=== PATIENT | female | born 1940 | race Caucasian/White ===

== ENCOUNTER 2018-11-17 16:11 | Emergency (ER) | payer OTHER ==
[~2018-11-17] VITALS: Ht 149.9 cm; Wt 71.7 kg
[~2018-11-17 16:11] MED LIST: AMOXICILLIN250 MG PO; RELAFEN500 MG PO; ROBITUSSIN COUG PO; TOPROL XL50 MG PO
[2018-11-17] MEDS ORDERED: FORTAMET500 MG (17:06)
[2018-11-17] MEDS ORDERED: COZAAR50 MG (17:06)
[2018-11-17] MEDS ORDERED: ZOCOR20 MG (17:07)
[2018-11-17] MEDS ORDERED: NEURONTIN300 MG (17:07)
[2018-11-17] MEDS ORDERED: SYNTHROID50 MCG (17:08)
[2018-11-17] MEDS ORDERED: ASPIR 8181 MG (17:08)
[2018-11-17] MEDS ORDERED: RESTASIS1 EACH (17:09)
[2018-11-17] MEDS ORDERED: LUMIGAN2.5 M1 (17:09)
[2018-11-17] MEDS ORDERED: DORZOLAMIDE 2%10 ML (17:09)
[2018-11-17] MEDS ORDERED: REFRESH TEARS15 ML (17:09)
== END 2018-11-17 21:09 | disposition home or self-care (01) ==
LOC: ER 16:11
DX: M54.5 Low back pain (principal); M25.551 Pain in right hip

== ENCOUNTER 2021-06-22 08:25 | Emergency (ER) | payer OTHER ==
[~2021-06-22] VITALS: Ht 144.8 cm; Wt 71.7 kg
[~2021-06-22 08:25] MED LIST changes: +ASPIR 8181 MG; +COZAAR50 MG; +DORZOLAMIDE 2%10 ML; +FORTAMET500 MG; +LUMIGAN2.5 M1; +NEURONTIN300 MG; +REFRESH TEARS15 ML; +RESTASIS1 EACH; +SYNTHROID50 MCG; +ZOCOR20 MG
[2021-06-22] MEDS ORDERED: PROTONIX40 MG PO (14:13)
[2021-06-22] MEDS ORDERED: DICY20TA PO (14:13)
== END 2021-06-22 14:37 | disposition home or self-care (01) ==
LOC: ER 08:25
DX: R10.13 Epigastric pain (principal); E11.9 Type 2 diabetes mellitus without complications

== ENCOUNTER 2022-07-30 13:22 | Emergency (ER) | payer OTHER ==
[~2022-07-30] VITALS: Ht 149.9 cm; Wt 71.7 kg
[~2022-07-30 13:22] MED LIST changes: +DICY20TA PO; +PROTONIX40 MG PO
== END 2022-07-30 19:39 | disposition home or self-care (01) ==
LOC: ER 13:22
DX: M79.642 Pain in left hand (principal); M25.562 Pain in left knee; M25.561 Pain in right knee; M79.641 Pain in right hand

== ENCOUNTER 2023-05-25 19:34 | Emergency (ER) | payer OTHER ==
[~2023-05-25] VITALS: Ht 147.3 cm; Wt 74.4 kg
[2023-05-25 21:32] LABS: HEMATOCRIT 36.3 % (36.0-45.00); HEMOGLOBIN 11.7 g/dL (12.0-15.00); MEAN CELL VOLUME 84.5 fL (80.00-100.00); MEAN CORPUSCULAR HEMOGLOBIN 27.3 pg (27.00-32.0); MEAN CORPUSCULAR HGB CONC 32.3 g/dl (32.0-36.0); PLATELET COUNT 294 K/uL (150-450); RED CELL DISTRIBUTION WIDTH 15.6 % (11.5-14.5)
== END 2023-05-25 22:26 | disposition home or self-care (01) ==
LOC: ER
PROVIDERS: General Practice
DX: L02.212 Cutaneous abscess of back [any part, except buttock and flank] (principal); I10 Essential (primary) hypertension; E11.9 Type 2 diabetes mellitus without complications; Z79.84 Long term (current) use of oral hypoglycemic drugs

== ENCOUNTER 2024-07-19 19:58 | Emergency (ER) | payer OTHER ==
[~2024-07-19] VITALS: Ht 152.4 cm; Wt 71.7 kg
[~2024-07-19 19:58] MED LIST changes: +CHILDREN'S ASPI81 MG; +COZAAR25 MG; +GABAPENTIN300 M2; +LEVOTHYROXINE25 MCG; +METFORMIN HCL500 M2; +SIMVASTATIN80 MG
[2024-07-19] MEDS ORDERED: IBU600 MG PO (22:09)
[2024-07-19] MEDS ORDERED: PEPCID AC20 MG PO (22:09)
[2024-07-19] MEDS ORDERED: DEXAMETHASONE SODIUM PHOSPHATE 4 MG/ML VIAL IM ONE (22:30)
[2024-07-19] MEDS ORDERED: KETOROLAC TROMETHAMINE 60 MG VIAL IM ONE ×2 (22:30→22:53)
[2024-07-19] MEDS ORDERED: DEXAMETHASONE SODIUM PHOSPHATE 4 MG/ML VIAL ONE (22:54)
== END 2024-07-19 23:16 | disposition home or self-care (01) ==
LOC: ER 20:01
DX: M94.0 Chondrocostal junction syndrome [Tietze] (principal); I10 Essential (primary) hypertension; E03.8 Other specified hypothyroidism; E11.9 Type 2 diabetes mellitus without complications; Z79.84 Long term (current) use of oral hypoglycemic drugs
CPT/HCPCS: 96372; 99282; J1100; J1885

== ENCOUNTER 2025-01-11 20:49 | Emergency (ER) | payer OTHER ==
[~2025-01-11] VITALS: Ht 152.4 cm; Wt 73.5 kg
[~2025-01-11 20:49] MED LIST changes: +IBU600 MG PO; +PEPCID AC20 MG PO
[2025-01-11] MEDS ORDERED: KETOROLAC TROMETHAMINE 30 MG VIAL IM ONE (22:00)
== END 2025-01-12 01:20 | disposition home or self-care (01) ==
LOC: ER 21:26
DX: S09.8XXA Other specified injuries of head, initial encounter (principal); W01.0XXA Fall on same level from slipping, tripping and stumbling without subsequent striking against object, initial encounter; Y93.89 Activity, other specified; Y92.012 Bathroom of single-family (private) house as the place of occurrence of the external cause; E03.8 Other specified hypothyroidism; E78.00 Pure hypercholesterolemia, unspecified; I10 Essential (primary) hypertension; E11.9 Type 2 diabetes mellitus without complications; Z79.84 Long term (current) use of oral hypoglycemic drugs